=== PATIENT | male | born 1965 | race Two or more races ===

== ENCOUNTER 2025-01-27 12:26 | Emergency (ER) | payer OTHER ==
[~2025-01-27] VITALS: Ht 176.5 cm; Wt 87.5 kg
[2025-01-27 14:59] LABS: BASO % 0.4 % (0.1-1.2); EOS # 0.04 (0.04-0.54); EOS % 0.3 % (0.7-7.0); LYMPH # 1.53 (1.18-3.74); LYMPH % 13.4 % (19.3-53.1); MEAN PLATELET VOLUME 10.30 fl (9.4-12.4); MONO # 1.15 (0.24-0.82); MONO % 10.1 % (4.7-12.5); NEUT # 8.64 (1.56-6.13); NEUT % 75.5 % (34.0-71.1); RED CELL DISTRIBUTION WIDTH 12.7 % (11.6-14.4)
[2025-01-27 15:27] LABS: ALT/SGPT 22.0 U/L (12-78); AST/SGOT 20.0 U/L (15-37); BILIRUBIN TOTAL 1.22 mg/dL (0.3-1.2); BUN CREA RATIO 12.0 (7.0-25.0); CREATININE SERUM 1.08 mg/dL (0.70-1.30); GFR 69.51; GLOBULINA 4.1 G/DL (2.4-3.5); GLUCOSE FASTING 151.0 mg/dL (65-100); OSMOLALITY SERUM 286.0 MOSM/KG (275-295)
[2025-01-27 16:22] LABS: URINE APPEARANCE Clear; URINE BILIRRUBIN Small (NEGATIVE); URINE BLOOD Negative; URINE COLOR Dark Yellow; URINE GLUCOSE Negative (NEGATIVE); URINE KETONE Trace (NEGATIVE); URINE LEUKOCYTE Negative; URINE NITRATE Negative; URINE PROTEIN Trace (NEGATIVE); URINE UROBILINOGEN 2.0 E.U./dl
[2025-01-27 16:25] LABS: URINE EPITHELIAL CELLS 1.6 uL (0.0-38.8); URINE RBC 20.8 uL (0.0-20.8)
[2025-01-27 16:47] LABS: URINE BACTERIA 1.1 uL (0.0-1933); URINE CAST 0.00 uL (0.0-1.40); URINE WBC 0.9 uL (0.0-23.2)
[2025-01-27 17:13] LABS: ERYTHROCYTE SEDIMENTATION RATE 40 mm/hr (0-20)
[2025-01-27] MEDS ORDERED: KETOROLAC TROMETHAMINE 60 MG VIAL IM ONE (20:45)
[2025-01-27] MEDS ORDERED: COLCHICINE 0.6 MG CAPSULE PO ONE (20:45)
[2025-01-27] MEDS ORDERED: COLCHICINE0.6 MG PO (21:48)
[2025-01-27] MEDS ORDERED: IBUPROFEN800 MG PO (21:48)
== END 2025-01-27 22:04 | disposition home or self-care (01) ==
LOC: ER 12:26
PROVIDERS: General Practice
DX: M10.9 Gout, unspecified (principal)
CPT/HCPCS: 36415; 96372; 99282; J1885